=== PATIENT | male | born 1985 | race Caucasian/White ===

== ENCOUNTER 2021-01-22 12:44 | Emergency (ER) | payer OTHER ==
[~2021-01-22 12:44] MED LIST: NAPROXEN500 MG PO
[2021-01-22 13:52] LABS: HEMOGLOBIN 17.2 gm/dl (14.0-17.5); RED BLOOD COUNT 5.6 M/UL (4.20-5.50); WHITE BLOOD COUNT 8.5 K/UL (4.5-11.0)
[2021-01-22 14:11] LABS: BUN/CREATININE RATIO 26 (0-10)
[2021-01-22] MEDS ORDERED: IBUPROFEN600 MG PO (16:12)
== END 2021-01-22 16:27 | disposition home or self-care (01) ==
LOC: ER1 12:44
DX: R10.9 Unspecified abdominal pain (principal); R11.0 Nausea; R31.9 Hematuria, unspecified; R79.89 Other specified abnormal findings of blood chemistry
CPT/HCPCS: 71046; 80053; 81001; 83690; 85025; 85379; 96372; 99284; J2270

== ENCOUNTER 2021-01-28 19:45 | Emergency (ER) | payer OTHER ==
[~2021-01-28 19:45] MED LIST changes: +IBUPROFEN600 MG PO
== END 2021-01-28 20:37 | disposition left against medical advice (07) ==
LOC: ER1 19:45
DX: Z53.21 Procedure and treatment not carried out due to patient leaving prior to being seen by health care provider (principal)
CPT/HCPCS: 81001